=== PATIENT | male | born 1955 | race Caucasian/White ===

== ENCOUNTER → 2021-07-27 | Outpatient (CLI) | payer MEDICAID, OTHER ==
--- NOTE | 2021-07-27 11:05 | RAD ---
EXAM: Cervical spine, 4 views. HISTORY: Pain. COMPARISON: None. FINDINGS: 4 views of the cervical spine are obtained. There is degenerative endplate remodeling and a nterior spurring at the mid lower cervical levels. There is multilevel facet arthropathy. There is no fracture or significant listhesis. IMPRESSION: Multilevel degenerative change, primarily at the mid lower cervical levels. Electronically signed by: Mary Clemons MD (07/27/2021 11:03 AM) [id number]
== END ==
LOC: PF 08:42
PROVIDERS: ATTEND Anesthesiology Pain Medicine
DX: Z02.71 Encounter for disability determination (principal); M47.812 Spondylosis without myelopathy or radiculopathy, cervical region; M46.02 Spinal enthesopathy, cervical region
CPT/HCPCS: 72040; 94010; 94729